=== PATIENT | male | born 1955 | race Caucasian/White ===

== ENCOUNTER 2020-07-02 13:02 | Emergency (ER) | payer OTHER, SELFPAY ==
[2020-07-02 13:15] VITALS: BP 112/70; PULSE 95; RESP 16; TEMP 36.8; O2SAT 99
--- NOTE | 2020-07-02 13:19 | ED.GENADULT ---
HPI - General Adult General Chief complaint: Wound/Laceration Stated complaint: Foreign abcess Time Seen by Provider: 07/02/20 13:19 Source: patient Mode of arrival: ambulatory Limitations: no limitations History of Present Illness HPI narrative: 64-year-old male patient presents to the [facility] with complaints of an abscess to the left buttocks. Patient states he thinks is been there for about 3 days. Patient states he has tried Neosporin as well as hydrogen peroxide to the area and states it continues to worsen. Patient denies any fevers, body aches or chills. Related Data Home Medications Medication Instructions Recorded Confirmed pantoprazole 40 mg PO DAILY 07/02/20 07/02/20 rosuvastatin 10 mg PO DAILY 07/02/20 07/02/20 Allergies Allergy/AdvReac Type Severity Reaction Status Date / Time No Known Allergies Allergy Verified 07/02/20 13:13 Review of Systems Review of Systems: Narrative: CONSTITUTIONAL: Denies fever, chills, or sweats. EYES: Denies visual changes, redness, or discharge. ENT: Denies rhinorrhea, congestion, sore throat, or otalgia. CARDIOVASCULAR: Denies chest pain, palpitations, or edema. RESPIRATORY: Denies cough or dyspnea. GASTROINTESTINAL: Denies abdominal pain, nausea, vomiting, or diarrhea. GENITOURINARY: Denies dysuria or hematuria. SKIN: Denies rash or itching. Positive wound to left buttocks x3 days MUSCULOSKELETAL: Denies back pain, joint pain, or myalgia. NEUROLOGIC: Denies headache, numbness, or weakness. PSYCHIATRIC: Denies anxiety or depression. [facility] Past Medical History Medical History (Updated 07/02/20 @ 13:45 by FLO Abreu) Pancreatic cancer Comments At the time of my signature I agree with nursing past medical history, surgical, social, and family history. There is no relevant family history pertinent to the presenting complaint. Exam Narrative: Exam Narrative: GENERAL: Well-appearing, well-nourished, and in no acute distress. HEAD: Normocephalic, atraumatic. EYES: PERRLA and EOMI. ENT: Nares clear, no rhinorrhea or epistaxis. Mucous membranes moist. NECK: Supple. No lymphadenopathy CHEST: Clear to auscultation. No respiratory distress. HEART: Regular rate and rhythm. No murmur heard. Normal peripheral pulses. ABDOMEN: Soft, nontender, nondistended, normal active bowel sounds. EXTREMITIES: Normal range of motion. No edema. SKIN: Warm, dry, no rash. Patient has approximately 1-1/2 cm purple, raised wound noted to the left buttocks area there is some surrounding either erythema warmth and a hardened area measuring approximately 5 to 6 cm. NEURO: No focal deficits. Alert and oriented x3. Course Vital Signs Vital signs: Vital Signs Temperature 36.8 C 07/02/20 13:15 Pulse Rate 95 07/02/20 13:15 Respiratory Rate 16 07/02/20 13:15 Blood Pressure 112/70 07/02/20 13:15 Pulse Oximetry 99 07/02/20 13:15 Temperature 36.8 C 07/02/20 13:15 Pulse Rate 95 07/02/20 13:15 Respiratory Rate 16 07/02/20 13:15 Blood Pressure 112/70 07/02/20 13:15 Pulse Oximetry 99 07/02/20 13:15 Vital signs reviewed. Procedures Abscess I/D blake-rectal: Date of Incision: 07/02/20 Time of Incision: 13:30 Side (if applicable): left Sedation/analgesia: none Local Anesthetic: lidocaine 1% Amount of anesthesia used (mL): 2 Technique: incised with #11 blade Irrigation: Yes Packing used?: iodoform I&D Results: Pus and Blood Abcess I&D Additional Comments: The procedure was explained and verbal consent is obtained. The wound was anesthetized with 2ml of 1% lidocaine with good anesthesia. Sterile drape and prep are done. The fluctuant center was incised with #11 blade scalpel. A moderate amount of pus was expressed or removed. The wound was probed for loculated area and irrigated with normal saline. Wound was packed with iodoform. Dressing was applied. The patient tolerated the procedure we
--- NOTE | 2020-07-02 13:51 | PC.NURSE ---
1348 I & D performed by provider, dressing applied to area per provider.
== END 2020-07-02 13:48 | disposition home or self-care (01) ==
PROVIDERS: Emergency Provider Nurse Practitioner Family; PCP Internal Medicine
DX: L02.31 Cutaneous abscess of buttock (principal); Z85.07 Personal history of malignant neoplasm of pancreas
CPT/HCPCS: 10061; 87070; 87077; 87205; 99213; G0463